=== PATIENT | female | born 1965 | race Caucasian/White ===

== ENCOUNTER 2019-05-05 16:14 | Emergency (ER) | payer SELFPAY ==
[~2019-05-05] VITALS: Ht 160 cm; Wt 93.2 kg
[~2019-05-05 16:14] MED LIST: DULO60CA59 PO; IBUP-1542 PO; ONDA4TAB14 PO; QUET300T2 PO
[2019-05-05 16:23] VITALS: Ht 160 cm; Wt 93.2 kg
[2019-05-05] MEDS ORDERED: ONDANSETRON 4 MG INJ IV STA (17:05)
[2019-05-05] MEDS ORDERED: morphine 4 MG/ML VIAL IV STA (17:05)
[2019-05-05] MEDS ORDERED: KETOROLAC 30 MG INJ IV STA (17:46)
[2019-05-05 19:24] VITALS: BP 133/76; PULSE 82; RESP 16
--- NOTE | 2019-05-05 19:31 | ERD ---
ER Documentation Chief Complaint Chief Complaint constant L sided AP started AM. hx hysterectomy no NVD HPI Patient is a 53-year-old female with history of hypertension and diabetes who presents with abdominal pain. She complains of left lower quadrant abdominal pain and high blood pressure. She also went to have her "diabetes checked". She said the symptoms started this morning. The symptoms have been constant. She has had no treatment as of yet. She denies fevers, nausea, or vomiting. Upon review of old medical records this is the patient's first visit to the emergency department. She does not currently have a primary doctor. She did have previous hysterectomy done. ROS All systems reviewed and are negative except as per history of present illness. Medications Home Meds Active Scripts Duloxetine Hcl* (Duloxetine Hcl*) 60 Mg Capsule.dr, 60 MG PO DAILY, #7 CAP Prov:ALYSA SINGER MD 05/05/19 Quetiapine Fumarate* (Seroquel*) 300 Mg Tablet, 300 MG PO HS, #7 TAB Prov:ALYSA SINGER MD 05/05/19 Ondansetron (Ondansetron Odt) 4 Mg Tab.rapdis, 4 MG PO Q6H PRN for NAUSEA AND/OR VOMITING, #10 TAB Prov:ALYSA SINGER MD 05/05/19 Ibuprofen* (Motrin*) 600 Mg Tab, 600 MG PO Q6H PRN for PAIN AND OR ELEVATED TEMP, #30 TAB Prov:ALYSA SINGER MD 05/05/19 Reported Medications Duloxetine Hcl* (Duloxetine Hcl*) 60 Mg Capsule.dr, 60 MG PO DAILY, #30 CAP 05/05/19 Quetiapine Fumarate* (Seroquel*) 300 Mg Tablet, 150 MG PO HS, TAB 05/05/19 Allergies Allergies: Coded Allergies: Penicillins (Verified Allergy, Unknown, 05/05/19) PMhx/Soc History of Surgery: No Anesthesia Reaction: No Hx Neurological Disorder: No Hx Respiratory Disorders: No Hx Cardiac Disorders: No Hx Psychiatric Problems: No Hx Miscellaneous Medical Probl: Yes (PSORIASIS. ) Hx Alcohol Use: No Hx Substance Use: No Hx Tobacco Use: Yes Smoking Status: Current every day smoker FmHx Family History: diabetes Physical Exam Vitals Vital Signs Date Temp Pulse Resp B/P (MAP) Pulse Ox O2 O2 Flow FiO2 Time Delivery Rate 05/05/19 98.3 82 16 133/76 98 Room Air 19:24 (95) 05/05/19 98.1 88 16 137/77 98 Room Air 17:57 (97) 05/05/19 98.1 98 16 165/134 98 Room Air 17:23 (144) 05/05/19 98.1 100 16 179/90 98 16:23 (119) Physical Exam Const: Moderate distress secondary to pain Head: Atraumatic Eyes: Normal Conjunctiva ENT: Normal External Ears, Nose and Mouth. Neck: Full range of motion. No meningismus. Resp: Clear to auscultation bilaterally Cardio: Regular rate and rhythm, no murmurs Abd: Soft, left lower quadrant tenderness to palpation without rebound or guarding Skin: No petechiae or rashes Back: No midline or flank tenderness Ext: No cyanosis, or edema Neur: Awake and alert Psych: Normal Mood and Affect Result Diagram: 05/05/19 1712 05/05/19 1712 Results 24 hrs Laboratory Tests Test 05/05/19 16:15 05/05/19 17:12 Urine Color YELLOW Urine Clarity SLIGHTLY CLOUDY Urine pH 5.0 Urine Specific [place] 1.020 Urine Ketones TRACE mg/dL Urine Nitrite NEGATIVE mg/dL Urine Bilirubin NEGATIVE mg/dL Urine Urobilinogen NEGATIVE mg/dL Urine Leukocyte Esterase NEGATIVE Dilshad/ul Urine Microscopic RBC 3 /HPF Urine Microscopic WBC 2 /HPF Urine Squamous Epithelial Cells MODERATE /HPF Urine Hemoglobin NEGATIVE mg/dL Urine Glucose NEGATIVE mg/dL Urine Total Protein NEGATIVE mg/dl White Blood Count 6.7 10^3/ul Red Blood Count 5.01 10^6/ul Hemoglobin 13.8 g/dl Hematocrit 43.4 % Mean Corpuscular Volume 86.6 fl Mean Corpuscular Hemoglobin 27.5 pg Mean Corpuscular Hemoglobin Concent 31.8 g/dl Red Cell Distribution Width 14.3 % Platelet Count 224 10^3/UL Mean Platelet Volume 11.1 fl Immature Granulocytes % 0.300 % Neutrophils % 72.7 % Lymphocytes % 18.3 % Monocytes % 5.7 % Eosinophils % 2.7 % Basophils % 0.3 % Nucleated Red Blood Cells % 0.0 /100WBC Immature Granulocytes # 0.020 10^3/ul Neutrophils # 4.9 10^3/ul Lymphocytes # 1.2 10^3/ul Monocytes # 0.4 10^3/ul Eosinophils # 0.2 10^3/ul Basophils # 0.0 10^3/ul Nucleated Red Blood Cells # 0.0 10^3/ul Sodium Level 141 mmol/L Potassium Level 3.7 mmol/L Chloride Level 107 mmol/L Carbon Dioxide Level 28 mmol/L Anion Gap 6 Blood Urea Nitrogen 11 mg/dl Creatinine 0.52 mg/dl Est Glomerular Filtrat Rate mL/min > 60 mL/min Glucose Level 155 mg/dl Calcium Level 9.6 mg/dl Total Bilirubin 0.4 mg/dl Direct Bilirubin 0.00 mg/dl Indirect Bilirubin 0.4 mg/dl Aspartate Amino Transf (AST/SGOT) 27 IU/L Alanine Aminotransferase (ALT/SGPT) 25 IU/L Alkaline Phosphatase 102 IU/L Total Protein 7.7 g/dl Albumin 4.1 g/dl Globulin 3.60 g/dl Albumin/Globulin Ratio 1.13 Lipase 41 U/L Current Medications Medications Dose Sig/Homero Start Time Status Last (Trade) Ordered Route PRN Stop Time Admin Dose Reason Admin Morphine 4 mg ONCE STAT 05/05/19 DC Sulfate IV 17:05 05/05/19 (morphine) 17:06 Ondansetron 4 mg ONCE STAT 05/05/19 DC 05/05/19 HCl (Zofran IV 17:05 05/05/19 17:17 Inj) 17:06 Ketorolac 30 mg ONCE STAT 05/05/19 DC 05/05/19 Tromethamine IV 17:46 05/05/19 17:55 (Toradol) 17:47 Procedures/MDM CT abdomen pelvis is read by radiology. Patient is a 53-year-old female presents with abdominal pain. The patient was found to have left lower quadrant abdominal pain but no signs of surgical process on CT scan. Laboratory studies are basically normal. I do not believe patient requires further work-up or admission in the hospital at this time. I doubt diverticulitis, appendicitis, cholecystitis, pancreatitis. The patient will need close follow-up with the primary doctor at the local clinics within 24 to 48 hours if she does not currently have a primary doctor. Smoking Cessation Therapy: Pt. was lectured for greater than 3 minutes on the health risks of continued smoking and the benefits of cessation. Departure Diagnosis: Primary Impression: Abdominal pain Abdominal location: left lower quadrant Qualified Codes: R10.32 - Left lower quadrant pain Condition: Fair Patient Instructions: Abdominal Pain Referrals: [facility] YOU HAVE RECEIVED A MEDICAL SCREENING EXAM AND THE RESULTS INDICATE THAT YOU DO NOT HAVE A CONDITION THAT REQUIRES URGENT TREATMENT IN THE EMERGENCY DEPARTMENT. FURTHER EVALUATION AND TREATMENT OF YOUR CONDITION CAN WAIT UNTIL YOU ARE SEEN IN YOUR DOCTORS OFFICE WITHIN THE NEXT 1-2 DAYS. IT IS YOUR RESPONSIBILITY TO MAKE AN APPOINTMENT FOR FOLOW-UP CARE. IF YOU HAVE A PRIMARY DOCTOR --you should call your primary doctor and schedule an appointment IF YOU DO NOT HAVE A PRIMARY DOCTOR YOU CAN CALL OUR PHYSICIAN REFERRAL HOTLINE AT IF YOU CAN NOT AFFORD TO SEE A PHYSICIAN YOU CAN CHOSE FROM THE FOLLOWING [facility] [address] [facility]. [facility] [address] [facility] [address] [facility] [facility] [address] [facility]. [facility] [address] [facility]. [facility]. [address] Additional Instructions: Call your primary care doctor TOMORROW for an appointment during the next 1-2 days.See the doctor sooner or return here if your condition worsens before your appointment time. ALYSA SINGER MD May 05, 2019 19:31
== END 2019-05-05 19:25 | disposition home or self-care (01) ==
LOC: E/R 16:14
DX: R10.32 Left lower quadrant pain (principal); I10 Essential (primary) hypertension; E11.9 Type 2 diabetes mellitus without complications; F17.210 Nicotine dependence, cigarettes, uncomplicated
CPT/HCPCS: 36415; 74176; 80053; 81001; 83690; 85025; 96374; 96375; 99285; J1885; J2405; 81003; J2270